=== PATIENT | female | born 1985 | race Two or more races ===

== ENCOUNTER 2022-11-30 15:37 | Emergency (ER) | payer MEDICAID ==
[~2022-11-30] VITALS: Ht 160 cm; Wt 58.1 kg
[2022-11-30] MEDS ORDERED: DexAMETHasone SOD PHOS 10MG/1ML VIAL INJ IM ONE (20:30)
[2022-11-30] MEDS ORDERED: KETOROLAC TROMETH 60MG/2ML VIAL IM ONE (20:30)
[2022-11-30] MEDS ORDERED: HYDROcodone-ACET 5/325MG TAB PO ONE (20:30)
[2022-11-30] MEDS ORDERED: IBUP1TAB5 PO (20:40)
[2022-11-30] MEDS ORDERED: CYCL-839 PO (20:40)
[2022-11-30 21:30] VITALS: BP 121/78; PULSE 74; RESP 18; TEMP 95.9; O2SAT 99
== END 2022-11-30 21:31 | disposition home or self-care (01) ==
LOC: ER 15:37
DX: S86.912A Strain of unspecified muscle(s) and tendon(s) at lower leg level, left leg, initial encounter (principal); M62.830 Muscle spasm of back; X58.XXXA Exposure to other specified factors, initial encounter; Y93.89 Activity, other specified; Y92.89 Other specified places as the place of occurrence of the external cause; Y99.8 Other external cause status
CPT/HCPCS: 72131; 81025; 93971